=== PATIENT | male | born 1985 | race Caucasian/White ===

== ENCOUNTER 2016-10-30 09:45 | Emergency (ER) | payer OTHER ==
[2016-10-30] MEDS ORDERED: IBUPROFEN 600MG TABLET PO ONE (11:45)
[2016-10-30] MEDS ORDERED: TETANUS, DIPHTHERIA, PERTUSSIS VAC/PF 0.5ML (>7YR OLD) IM ONE (11:45)
[2016-10-30] MEDS ORDERED: BACITRACIN ZINC OINT UDPKT TOP ONE (11:45)
[2016-10-30 12:18] VITALS: BP 106/76
== END 2016-10-30 13:31 | disposition home or self-care (01) ==
LOC: ER 09:45
DX: S52.124A Nondisplaced fracture of head of right radius, initial encounter for closed fracture (principal); S40.021A Contusion of right upper arm, initial encounter; S80.11XA Contusion of right lower leg, initial encounter; S80.811A Abrasion, right lower leg, initial encounter; M25.531 Pain in right wrist; V13.4XXA Pedal cycle driver injured in collision with car, pick-up truck or van in traffic accident, initial encounter; Y93.55 Activity, bike riding; Y92.414 Local residential or business street as the place of occurrence of the external cause; Z23 Encounter for immunization
CPT/HCPCS: 29105; 73080; 73090; 73110; 90471; 90715; 99284